=== PATIENT | female | born 1995 | race Caucasian/White ===

== ENCOUNTER 2019-02-22 12:38 | Emergency (ER) | payer OTHER ==
[~2019-02-22] VITALS: Ht 157.5 cm; Wt 67.6 kg
[2019-02-22 12:50] VITALS: Ht 157.5 cm; Wt 67.6 kg
[2019-02-22 15:39] VITALS: BP 105/63
== END 2019-02-22 15:39 | disposition home or self-care (01) ==
LOC: ED 12:38
DX: J45.901 Unspecified asthma with (acute) exacerbation (principal); R09.1 Pleurisy; M79.7 Fibromyalgia; K21.9 Gastro-esophageal reflux disease without esophagitis; G43.909 Migraine, unspecified, not intractable, without status migrainosus; Z88.6 Allergy status to analgesic agent; Z88.1 Allergy status to other antibiotic agents; Z88.8 Allergy status to other drugs, medicaments and biological substances
CPT/HCPCS: J7512; J7613; Q0092

== ENCOUNTER 2019-03-15 08:55 | Emergency (ER) | payer OTHER ==
[~2019-03-15] VITALS: Ht 157.5 cm; Wt 66.2 kg
[2019-03-15 08:59] VITALS: Ht 157.5 cm; Wt 66.2 kg
[2019-03-15 10:30] VITALS: BP 111/78
== END 2019-03-15 10:30 | disposition home or self-care (01) ==
LOC: ED 08:55
DX: J30.9 Allergic rhinitis, unspecified (principal); G43.909 Migraine, unspecified, not intractable, without status migrainosus; Z88.6 Allergy status to analgesic agent; Z88.1 Allergy status to other antibiotic agents; Z88.5 Allergy status to narcotic agent; J45.909 Unspecified asthma, uncomplicated
CPT/HCPCS: Q0092